=== PATIENT | female | born 1940 | race Caucasian/White ===

== ENCOUNTER → 2017-02-18 | Outpatient (CLI) | payer OTHER ==
[~2017-02-18] VITALS: Ht 162.6 cm; Wt 69.9 kg
[~2017-02-18] MED LIST: AFEDITAB CR30 MG PO; AMBEREN; ANTIVERT25 MG PO; APAP500 PO; AZITHROMYCIN250 MG; B COMPLETE1 EAC1 PO; CALCIUM 600 +1 EAC1 PO; CELEXA 20 MG TA20 M1 PO; CELEXA 20 MG TA20 MG PO; CELEXA40 MG PO; CYMBALTA30 MG PO; DIAZEPAM2 MG PO; HAIR, SKIN & N1 EAC1 PO; HYDROXYZINE HCL25 M1 PO; KLOR-CON 10 ER10 MEQ PO; LINZESS145 MCG PO; MOBIC7.5 MG PO; OCUVITE TABLET1 EAC1 PO; OMEGA 3-6-9 11200 M1 PO; OMEGA 3-6-9 11200 MG PO; OMEGA-3 FISH O1 EAC3 PO; ONDANSETRON HCL4 M2 PO; PHILLIPS' COLO1 EACH PO; PREDNISONE 20 M20 M1 PO; PREMARIN0.625 MG PO; PREVACID 30MG C30 M1 PO; PREVACID PO; PREVACID30 MG PO; PROCARDIA XL30 MG PO; PROZAC40 MG PO; REFRESH TEARS15 ML OPHTHALMIC; SIMVASTATIN20 MG PO; SIMVASTATIN40 MG PO; SINGULAIR 10 MG10 M1 PO; SUPER B COMPLE150 MG PO; SYNTHROID25 MCG PO; SYNTHROID50 MCG PO; TOPAMAX100 MG PO; VENTOLIN HFA 1818 GM INH; VICODIN 5-5001 EACH PO; VITAMIN B-12100 MC1 PO; VITAMIN B-6200 M1 PO; ZOFRAN ODT4 MG PO
--- NOTE | ~2017-02-18 | O ---
[facility] [place] [address] OPERATIVE REPORT Name: CORNELIOLUISITOMARYNESSA L Room #: REG [facility]#: [id number] Admission: 02/18/17 Attend Phys: Shailesh Marquez MD, F Discharge: Date of : 40 Report #: [id number] THIS REPORT FOR: //name// CC: Woo Marquez DATE OF SERVICE: 02/18/2017 PREPROCEDURE DIAGNOSES: 1. Gastroesophageal reflux. 2. Hypertension. 3. Joint pain. 4. History of hepatitis. POSTOPERATIVE DIAGNOSES: 1. Gastroesophageal reflux with a moderate hiatal hernia. 2. Hypertension. 3. Joint pain. 4. History of hepatitis. PROCEDURE: Thorough esophagogastroduodenoscopy. ANESTHESIA: Monitored anesthetic care (propofol 180 mg). SPECIMENS: None. COMPLICATIONS: None appreciated. INDICATIONS FOR PROCEDURE: This is a 76-year-old female patient who has had a greater than 10-year history of gastroesophageal reflux, taking daily Prevacid (twice daily as necessary) and has been avoiding refluxogenic foods as well as sleeping upright at night. Despite these measures, the patient continues to complain of gastroesophageal reflux. She has undergone previous endoscopy and was told that she has a hiatal hernia. She presents now for repeat EGD for evaluation. FINDINGS: The patient's esophagus was normal down to the GE junction and Z-line measured at 38 cm from the teeth. The diaphragmatic infolding was measured at 41 cm from the teeth indicative of a 3 cm hiatal hernia. No ulcers were seen in this area. No polyps, diverticula, masses, or ulcers were seen in the stomach. Likewise, the duodenum was normal down to the third portion. On retroflexion of the gastroscope, the hiatal hernia was easily visualized and appeared to be moderate in size. No other significant pathology was identified. DESCRIPTION OF PROCEDURE IN DETAIL: After the risks and benefits, and expectations of the procedure were explained to the patient, informed consent [address] [address] OPERATIVE REPORT Name: CORNELIOLUISITOMARYNESSA L Room #: REG [facility]#: [id number] Admission: 02/18/17 Attend Phys: Shailesh Marquez MD, F Discharge: Date of : 40 Report #: [id number] was obtained. The patient was identified in the preoperative holding area. After the patient was identified in the preprocedure holding area, she was taken to the procedure room and she was placed in the supine position. A bite block was placed. A time-out was then performed to identify the correct patient and procedure. The patient was then given IV sedation. When adequately sedated, the Fujinon gastroscope was inserted into the patient's oropharynx and passed down the esophagus into the stomach and beyond the pylorus to the third portion of the duodenum. The scope was then slowly withdrawn. Findings are as noted above. With the scope withdrawn into the antrum of the stomach, the scope was retroflexed and a retrograde view of the cardia was seen including the hiatal hernia. The scope was then straightened and slowly withdrawn. The stomach was decompressed. Confirmatory measurements were again taken. The scope was then slowly withdrawn through the normal appearing esophagus. The patient tolerated the procedure well. She was awakened and returned to the recovery room in stable condition with no apparent procedural complications. My recommendation is that the patient continue her twice daily proton pump inhibitor. Her reflux workup will continue with a barium swallow and esophageal manometry. She will follow up with me after having undergone these studies. <ELECTRONICALLY SIGNED> By: Shailesh Marquez MD, FACS 02/20/17 2224 1740 1829 Shailesh Marquez MD, FACS /nt
== END ==
LOC: GI 11:51
DX: K21.9 Gastro-esophageal reflux disease without esophagitis (principal); K44.9 Diaphragmatic hernia without obstruction or gangrene; I10 Essential (primary) hypertension; F41.8 Other specified anxiety disorders; E78.00 Pure hypercholesterolemia, unspecified; Z98.51 Tubal ligation status; E03.8 Other specified hypothyroidism; Z90.710 Acquired absence of both cervix and uterus; B15.9 Hepatitis A without hepatic coma; Z88.8 Allergy status to other drugs, medicaments and biological substances
CPT/HCPCS: 62110; 62900

== ENCOUNTER → 2017-03-04 | Outpatient (CLI) | payer OTHER | LOC: RAD 02-27 09:06 | DX: K44.9 Diaphragmatic hernia without obstruction or gangrene (principal); R13.10 Dysphagia, unspecified ==

== ENCOUNTER → 2017-09-16 | Outpatient (CLI) | payer OTHER ==
[~2017-09-16] MED LIST changes: +ASPIR 8181 MG PO; +NEURONTIN 300300 M1 PO; +PROBIOTIC1 EAC4 PO; +RESTORIL15 M1 PO; +VICODIN 5-3001 EACH PO; +XYZAL5 MG PO
== END ==
LOC: CAT 09:27
DX: M47.26 Other spondylosis with radiculopathy, lumbar region (principal)

== ENCOUNTER → 2017-10-22 | Outpatient (CLI) | payer OTHER ==
[~2017-10-22] MED LIST changes: -ASPIR 8181 MG PO; -VICODIN 5-3001 EACH PO
== END | disposition home or self-care (01) ==
LOC: RAD 06:15
DX: M51.36 Other intervertebral disc degeneration, lumbar region (principal); Z79.899 Other long term (current) drug therapy; Z88.8 Allergy status to other drugs, medicaments and biological substances

== ENCOUNTER → 2018-04-07 | Outpatient (CLI) | payer OTHER ==
[~2018-04-07] MED LIST changes: +ASPIR 8181 MG PO
== END ==
LOC: CAT 09:03
DX: S22.019A Unspecified fracture of first thoracic vertebra, initial encounter for closed fracture (principal); I10 Essential (primary) hypertension; E78.00 Pure hypercholesterolemia, unspecified; E03.9 Hypothyroidism, unspecified; X58.XXXA Exposure to other specified factors, initial encounter; Y93.89 Activity, other specified; Y92.89 Other specified places as the place of occurrence of the external cause; Y99.8 Other external cause status; Z90.710 Acquired absence of both cervix and uterus; Z79.899 Other long term (current) drug therapy

== ENCOUNTER → 2018-04-24 | Outpatient (CLI) | payer OTHER ==
[~2018-04-24] VITALS: Ht 162.6 cm; Wt 66.7 kg
[~2018-04-24] MED LIST changes: +VICODIN 5-3001 EACH PO
[2018-04-24 08:35] VITALS: BP 136/78
[2018-04-24 08:58] LABS: HEMATOCRIT 38.5 % (37.0-47.0); HEMOGLOBIN 13.3 gm/dL (12.0-15.0); MCH 30.4 pg (26.0-34.0); MCHC 34.4 g/dL (28.0-37.0); MCV 88.2 fL (80.0-100.0); RBC 4.37 mil/uL (4.20-5.00); RDW 13.8 % (10.5-14.5); WBC 7.5 thou/uL (4.0-11.0)
[2018-04-24 09:07] LABS: CALCIUM 9.3 mg/dL (8.5-10.1); POTASSIUM 3.8 mmol/L (3.5-5.1)
[2018-04-24 09:11] LABS: APTT 27.7 Seconds (24.5-32.8)
== END | disposition home or self-care (01) ==
LOC: MRI 08:02
PROVIDERS: Radiology Diagnostic Radiology
DX: M80.08XA Age-related osteoporosis with current pathological fracture, vertebra(e), initial encounter for fracture (principal); M54.9 Dorsalgia, unspecified; I10 Essential (primary) hypertension; E03.9 Hypothyroidism, unspecified; K21.9 Gastro-esophageal reflux disease without esophagitis; E78.00 Pure hypercholesterolemia, unspecified; F32.9 Major depressive disorder, single episode, unspecified; F41.9 Anxiety disorder, unspecified; Z98.41 Cataract extraction status, right eye; Z98.42 Cataract extraction status, left eye; Z90.49 Acquired absence of other specified parts of digestive tract; Z98.51 Tubal ligation status; Z90.710 Acquired absence of both cervix and uterus; Z87.19 Personal history of other diseases of the digestive system; Z82.49 Family history of ischemic heart disease and other diseases of the circulatory system; Z86.73 Personal history of transient ischemic attack (TIA), and cerebral infarction without residual deficits; Z98.890 Other specified postprocedural states; Z79.899 Other long term (current) drug therapy; Z88.6 Allergy status to analgesic agent; Z79.82 Long term (current) use of aspirin

== ENCOUNTER 2018-06-27 13:01 | Emergency (ER) | payer OTHER ==
[~2018-06-27] VITALS: Ht 160 cm; Wt 68.0 kg
--- NOTE | ~2018-06-27 | EKG ---
[address] [address] ELECTROCARDIOGRAM REPORT Name: NESSA ZAYAS Room #: DEP [facility]#: [id number] Admission: 06/27/18 Attend Phys: Discharge: 06/27/18 Date of : 40 Report #: [id number] THIS REPORT FOR: //name// [facility] ED Test Date: 2018-06-27 Test Time: 13:32:06 Pat Name: NESSA ZAYAS Department: Room: Gender: F Track Layer: YAS : 1940 Requested By: Desi Darling Order Number: [id number] MD: Raul Hernandez Measurements Intervals [place] Rate: 85 P: 56 MD: 169 QRS: 67 QRSD: 96 T: 50 QT: 389 QTc: 463 Interpretive Statements Sinus rhythm PAC Baseline wander in lead(s) V6 Compared to ECG 01/28/2018 12:00:01 No significant changes Electronically Signed On 06-29-2018 11:05:54 

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
[2018-06-27 13:49] LABS: ABSOLUTE NEUTROPHILS 5.3 thou/uL (1.4-8.2); BASOPHILS 0.9 % (0.0-2.0); EOSINOPHILS 3.7 % (0.0-3.0); HEMATOCRIT 41.8 % (37.0-47.0); HEMOGLOBIN 14.3 gm/dL (12.0-15.0); LYMPHOCYTES 23.1 % (24.0-44.0); MCH 30.5 pg (26.0-34.0); MCHC 34.2 g/dL (28.0-37.0); MCV 89.3 fL (80.0-100.0); MONOCYTES 8.3 % (1.0-8.0); PLATELET COUNT 339 thou/uL (150-400); RBC 4.68 mil/uL (4.20-5.00); RDW 13.6 % (10.5-14.5); WBC 8.3 thou/uL (4.0-11.0)
[2018-06-27 13:58] LABS: POC CREATININE 0.9 mg/dL (0.6-1.3); POC HEMOGLOBIN 14.6 g/dL (12.0-15.0); POC POTASSIUM 3.3 mmol/L (3.5-5.1)
[2018-06-27 14:04] LABS: ANION GAP 9 mmol/L (7-16); BUN 15 mg/dL (7-18); CALCIUM 9.2 mg/dL (8.5-10.1); CHLORIDE 102 mmol/L (98-107); CO2 28 mmol/L (21-32); CREATININE 0.9 mg/dL (0.6-1.0); GLUCOSE 98 mg/dL (74-106); POTASSIUM 3.9 mmol/L (3.5-5.1); SODIUM 139 mmol/L (136-145)
[2018-06-27 14:07] LABS: APTT 27.5 Seconds (24.5-32.8); PROTIME 9.8 Seconds (9.3-11.4)
[2018-06-27 14:12] LABS: TROPONIN-I <0.06 ng/mL (<0.06)
[2018-06-27 16:31] LABS: URINE BILIRUBIN NEGATIVE (Negative); URINE BLOOD NEGATIVE (Negative); URINE CLARITY CLEAR; URINE COLOR YELLOW; URINE GLUCOSE-RANDOM* NEGATIVE (Negative); URINE KETONES NEGATIVE (Negative); URINE LEUKOCYTES NEGATIVE (Negative); URINE NITRITE NEGATIVE (Negative); URINE PROTEIN (DIPSTICK) NEGATIVE (Negative); URINE UROBILINOGEN 0.2 E.U./dl (0.2-1.0)
[2018-06-27 17:35] VITALS: BP 142/84
== END 2018-06-27 17:36 | disposition home or self-care (01) ==
LOC: ER 13:01
PROVIDERS: Student in an Organized Health Care Education/Training Program
DX: H02.401 Unspecified ptosis of right eyelid (principal); R53.1 Weakness; F32.9 Major depressive disorder, single episode, unspecified; F41.9 Anxiety disorder, unspecified; E78.00 Pure hypercholesterolemia, unspecified; H81.09 Meniere's disease, unspecified ear; K58.9 Irritable bowel syndrome, unspecified; I10 Essential (primary) hypertension; E03.9 Hypothyroidism, unspecified; Z90.710 Acquired absence of both cervix and uterus; K21.9 Gastro-esophageal reflux disease without esophagitis; Z88.8 Allergy status to other drugs, medicaments and biological substances; Z90.49 Acquired absence of other specified parts of digestive tract; Z88.5 Allergy status to narcotic agent

== ENCOUNTER → 2018-08-18 | Outpatient (CLI) | payer OTHER | LOC: MRI 09:54 | DX: R42 Dizziness and giddiness (principal); R26.9 Unspecified abnormalities of gait and mobility ==

== ENCOUNTER → 2018-10-28 | Outpatient (CLI) | payer OTHER ==
[~2018-10-28] VITALS: Ht 162.6 cm; Wt 66.7 kg
[~2018-10-28] MED LIST changes: +HAIR SKIN NAIL1 EACH PO; +PRESERVISION T1 EACH PO
[2018-10-28 13:06] VITALS: BP 131/91
--- NOTE | 2018-10-28 13:37 | NUR ---
Pain Clinic Assessment: 1. History of Osteoarthritis: History of Rheumatoid Arthritis: 2. Height: 5 ft. 4 in. 162.6 cm. Weight: 147.0 lb. oz. 66.679 kg. Patient's BMI: 25.2 3. Vital Signs: BP: 131/91 Pulse: 81 Resp: 16 Temp: 02 Sat: 100 ECG Mon: 4. Pain Intensity: 5, 9 WITH MOVEMENT 5. Fall Risk: Dizziness: Y Needs help standing or walking: N Fallen in the last 3 months: Y Fall risk comments: 6. Patient on Blood Thinner: None 7. History of Hypertension: Y 8. Opioid Therapy greater than 6 weeks: Y Opiate Contract Signed: 9. Risk Assessment Tool Provided: 10. Functional Assessment Tool: 11. Recreational Drug Use: Never Drug Type: Tobacco Use: Never Smoker Tobacco Type: Amount or Packs/day: How Many Years: Alcohol Use: No Frequency: Quant:
== END ==
LOC: PAIN 07:12
DX: M54.5 Low back pain (principal); M19.90 Unspecified osteoarthritis, unspecified site; Z98.890 Other specified postprocedural states

== ENCOUNTER → 2019-01-01 | Outpatient (CLI) | payer OTHER ==
[~2019-01-01] VITALS: Ht 162.6 cm; Wt 68.9 kg
[~2019-01-01] MED LIST changes: +CYMBALTA60 MG PO; +HYDROCODON-ACE1 EAC7 PO; +NEURONTIN600 MG PO
[2019-01-01 08:27] VITALS: BP 160/93
--- NOTE | 2019-01-01 08:43 | NUR ---
Pain Clinic Assessment: 1. History of Osteoarthritis: Not Applicable History of Rheumatoid Arthritis: Not Applicable 2. Height: 5 ft. 4 in. 162.6 cm. Weight: 152.0 lb. oz. 68.947 kg. Patient's BMI: 26.1 3. Vital Signs: BP: 160/93 Pulse: 77 Resp: 16 Temp: 02 Sat: 97 ECG Mon: 4. Pain Intensity: 8 5. Fall Risk: Dizziness: N Needs help standing or walking: N Fallen in the last 3 months: N Fall risk comments: 6. Patient on Blood Thinner: None 7. History of Hypertension: Y 8. Opioid Therapy greater than 6 weeks: Y Opiate Contract Signed: 9. Risk Assessment Tool Provided: LOW / 10. Functional Assessment Tool: 11. Recreational Drug Use: Never Drug Type: Tobacco Use: Never Smoker Tobacco Type: Amount or Packs/day: How Many Years: Alcohol Use: No Frequency: Quant:
== END | disposition home or self-care (01) ==
LOC: PAIN 06:46
DX: M54.16 Radiculopathy, lumbar region (principal); G89.29 Other chronic pain; Z88.6 Allergy status to analgesic agent; Z88.8 Allergy status to other drugs, medicaments and biological substances; Z79.82 Long term (current) use of aspirin; Z79.899 Other long term (current) drug therapy; Z79.891 Long term (current) use of opiate analgesic

== ENCOUNTER → 2019-04-28 | Outpatient (CLI) | payer OTHER ==
[~2019-04-28] VITALS: Ht 162.6 cm; Wt 69.8 kg
[2019-04-28 13:44] VITALS: BP 148/78
--- NOTE | 2019-04-28 13:58 | NUR ---
Pain Clinic Assessment: 1. History of Osteoarthritis: Not Applicable History of Rheumatoid Arthritis: Not Applicable 2. Height: 5 ft. 4 in. 162.6 cm. Weight: 153.8 lb. oz. 69.763 kg. Patient's BMI: 26.4 3. Vital Signs: BP: 148/78 Pulse: 86 Resp: 16 Temp: 02 Sat: 96 ECG Mon: 4. Pain Intensity: 9 5. Fall Risk: Dizziness: N Needs help standing or walking: N Fallen in the last 3 months: N Fall risk comments: 6. Patient on Blood Thinner: None 7. History of Hypertension: Y 8. Opioid Therapy greater than 6 weeks: Y Opiate Contract Signed: 9. Risk Assessment Tool Provided: LOW / 10. Functional Assessment Tool: 11. Recreational Drug Use: Never Drug Type: Tobacco Use: Never Smoker Tobacco Type: Amount or Packs/day: How Many Years: Alcohol Use: No Frequency: Quant:
--- NOTE | 2019-05-14 08:25 | HPC ---
[facility] [place] [address] PAIN MANAGEMENT CONSULTATION Name: NESSA ZAYAS KHLOEBlessing Room #: REG [facility] Maira.#: [id number] Admission: 04/28/19 Attend Phys: German Lewis MD Discharge: Date of : 40 Report #: [id number] THIS REPORT FOR: //name// CC: Woo Lewis DATE OF SERVICE: 04/28/2019 CHIEF COMPLAINT: Low back pain. HISTORY: The patient is a 78-year-old female who has been seen in the pain clinic because of low back pain. The patient has pain that is radiating down the lower portion of her back. It involves her legs. Pain is exacerbated when the patient walks for a prolonged period of time. Pain improves when she rests and sits in a recliner. She has not had surgery. She has not had physical therapy in the last year. She has had chiropractic treatment, but continues to have pain and discomfort. Epidural steroid injections in the past were helpful and she has returned today with the hopes of undergoing another epidural injection to help with her pain control. Last injection was in 10/2018. Her pain has reoccurred. ALLERGIES: CODEINE, OXYCODONE. CURRENT MEDICATIONS: Ascorbic acid, vitamin E, biotin, PreserVision tablets, Singulair 10 mg, Vicodin 5 mg 1 p.o. q.4 hours p.r.n., aspirin 81 mg, meloxicam 7.5 mg b.i.d., Restoril 15 mg, gabapentin 600 mg at bedtime, Xyzal 5 mg, probiotic/lactobacillus, Cymbalta 30 mg, Linzess 145 mcg every other day, vitamin B complex, calcium b.i.d., simvastatin 20 mg, Topamax for anger management, Synthroid 50 mcg, Procardia-XL 30 mg, Premarin 0.625. PAIN CLINIC ASSESSMENT AND PQRS: 1. The patient is not being treated for osteoarthritis. She is not being treated for rheumatoid arthritis. 2. Height 5 feet 4 inches, weight 153 pounds, BMI is 26.4. 3. Vital signs: Blood pressure 148/78, pulse 86, respiratory rate 16, room air saturation 96%. 4. Pain intensity, 03/16. 5. Fall history, the patient has not fallen in the last 3 months. 6. Blood thinner, the patient is not on a blood thinning medication. 7. Hypertension, the patient is being treated for hypertension. 8. Opioids greater than 6 weeks. The patient receives medications from one source. 9. Risk assessment tool, low for opioid use. 10. Functional assessment tool, /. 11. Recreational drug use, the patient denies. 12. Tobacco, the patient has never smoked. [facility] [address] [place] [address] PAIN MANAGEMENT CONSULTATION Name: NESSA ZAYAS TANIYA [facility]: [facility] [id number] Admission: 04/28/19 Attend Phys: German Lewis MD Discharge: Date of : 40 Report #: [id number] 13. Alcohol, the patient denies use of alcoholic beverages. PHYSICAL EXAMINATION: GENERAL: The patient is a well-developed, well-nourished, white female. She is alert and oriented x 3. Her affect is appropriate. Speech is fluent. HEENT: Normocephalic, atraumatic. Extraocular eye muscles intact. Sclerae nonicteric. Mucous membranes are moist. NECK: Without adenopathy or JVD. EXTREMITIES: Upper extremity muscle strength judged to be 5/5 for the major muscle groups in the upper extremity. HEART: Regular rate. ABDOMEN: Nontender. MUSCULOSKELETAL: The patient has pain and discomfort in the low back area. The patient is without significant scoliosis, kyphosis, or lordosis. Complains of pain and discomfort that radiates down into her leg involving the L5/S1 dermatomal distribution. IMPRESSION: 1. Chronic low back pain. 2. Hypertension. 3. Hepatitis A history. 4. Thyroid disease. 5. Stomach problems. 6. Emotional problems. 7. Joint disease/arthritis. 8. Meniere's disease. RECOMMENDATIONS: We discussed treatment options with the patient. Risks and benefits of an epidural steroid injection were discussed. They include but are not limited to infection, worsening pain, no improvement in pain, nerve damage, or spinal headache. The patient elects to proceed. PROCEDURE NOTE: The patient was taken to the procedure area. She was then assisted in getting on the examination table. Her back was sterilely prepped with a Betadine solution. A 0.25% bupivacaine was infiltrated in the L5-S1 midline area to anesthetize it. After appropriate anesthetizing of the area, a 17-gauge Tuohy with loss of resistance technique was used to gain access to the epidural space. There was no CSF, heme or paresthesia. Total of 80 mg Depo-Medrol, 40 mg triamcinolone and 2 mL of 0.25% bupivacaine was injected. A total of 15 seconds fluoroscopy time was used. The patient tolerated the procedure well. There were no complications. She remained in the pain clinic for an appropriate amount of time. She will follow up in the future as needed. [facility] [address] [place] [address] PAIN MANAGEMENT CONSULTATION Name: NESSA ZAYAS Room #: REG [facility].#: [id number] Admission: 04/28/19 Attend Phys: German Lewis MD Discharge: Date of : 40 Report #: [id number] We would like to thank you for letting us participate in her care. We hope she continues to improve. <ELECTRONICALLY SIGNED> By: German Lewis MD 05/14/19 0825 1411 0159 German Lewis MD /[facility]
== END | disposition home or self-care (01) ==
LOC: PAIN 07:06
DX: M54.16 Radiculopathy, lumbar region (principal); G89.29 Other chronic pain; Z98.890 Other specified postprocedural states; Z88.8 Allergy status to other drugs, medicaments and biological substances; Z79.899 Other long term (current) drug therapy

== ENCOUNTER 2020-01-16 17:03 | Emergency (ER) | payer OTHER ==
[~2020-01-16] VITALS: Ht 160 cm; Wt 68.0 kg
[2020-01-16 17:38] LABS: ABSOLUTE NEUTROPHILS 4.5 thou/uL (1.4-8.2); BASOPHILS 0.8 % (0.0-2.0); HEMATOCRIT 40.6 % (37.0-47.0); HEMOGLOBIN 14.1 gm/dL (12.0-15.0); LYMPHOCYTES 23.1 % (24.0-44.0); MCH 30.4 pg (26.0-34.0); MCHC 34.7 g/dL (28.0-37.0); MCV 87.5 fL (80.0-100.0); PLATELET COUNT 275 thou/uL (150-400); POLYS 63.1 % (36.0-66.0); RBC 4.63 mil/uL (4.20-5.00); RDW 13.5 % (10.5-14.5); WBC 7.1 thou/uL (4.0-11.0)
[2020-01-16 17:45] LABS: ANION GAP 8 mmol/L (7-16); BUN 12 mg/dL (7-18); CHLORIDE 100 mmol/L (98-107); CO2 28 mmol/L (21-32); CREATININE 1.2 mg/dL (0.6-1.0); GLUCOSE 102 mg/dL (74-106); POTASSIUM 3.5 mmol/L (3.5-5.1); SODIUM 136 mmol/L (136-145)
[2020-01-16 17:54] LABS: TROPONIN-I <0.06 ng/mL (<0.06)
[2020-01-16] MEDS ORDERED: METHOCARBAMOL500 M2 PO (19:48)
[2020-01-16] MEDS ORDERED: TRAMADOL 50 MG50 MG PO (19:48)
[2020-01-16 20:15] VITALS: BP 140/84
--- NOTE | 2020-01-17 09:11 | EKG ---
[facility] [place] [address] ELECTROCARDIOGRAM REPORT Name: NESSA ZAYAS Room #: DEP [facility]#: [id number] Admission: 01/16/20 Attend Phys: Discharge: 01/16/20 Date of : 40 Report #: [id number] THIS REPORT FOR: cc: Woo Cary David J. DO Lundgren, Craig H. 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 : 1940 Requested By: Tito Metzger Order Number: [id number] MD: Hema Park Measurements Intervals [place] Rate: 91 P: 40 AL: 213 QRS: 64 QRSD: 105 T: 59 QT: 413 QTc: 509 Interpretive Statements Sinus rhythm Borderline prolonged AL interval Borderline T abnormalities, anterior leads Prolonged QT interval Compared to ECG 06/27/2018 13:32:06 T-wave abnormality now present Prolonged QT interval now present Atrial premature complex(es) no longer present Electronically Signed On 01-17-2020 9:10:48 CDT by Hema Park [email or web address] <ELECTRONICALLY SIGNED> By: Hema Park MD, [facility] 01/17/20 0910 170 00 Hema Park MD, [facility] /EPI
== END 2020-01-16 20:20 | disposition home or self-care (01) ==
LOC: ER 17:03
PROVIDERS: Emergency Medicine
DX: R07.89 Other chest pain (principal); I10 Essential (primary) hypertension; Z90.710 Acquired absence of both cervix and uterus; Z90.49 Acquired absence of other specified parts of digestive tract; Z79.899 Other long term (current) drug therapy; Z88.5 Allergy status to narcotic agent

== ENCOUNTER → 2020-04-28 | Outpatient (CLI) | payer OTHER ==
[~2020-04-28] MED LIST changes: +METHOCARBAMOL500 M2 PO; +TRAMADOL 50 MG50 MG PO
== END ==
LOC: SJCVCIMAG 08:06
PROVIDERS: ATTEND Internal Medicine Cardiovascular Disease
DX: I07.1 Rheumatic tricuspid insufficiency (principal); I10 Essential (primary) hypertension; E78.00 Pure hypercholesterolemia, unspecified; F41.9 Anxiety disorder, unspecified; F32.9 Major depressive disorder, single episode, unspecified; Z79.899 Other long term (current) drug therapy

== ENCOUNTER → 2020-05-19 | Outpatient (CLI) | payer OTHER ==
[~2020-05-19] VITALS: Ht 162.6 cm; Wt 64.8 kg
[~2020-05-19] MED LIST changes: +NORVASC10 MG PO
--- NOTE | ~2020-05-19 | HPC ---
[facility] [place] [address] PAIN MANAGEMENT CONSULTATION Name: NESSA ZAYAS Room [facility]: [facility] [id number] Admission: 05/19/20 Attend Phys: German Lewis MD Discharge: Date of : 40 Report #: [id number] THIS REPORT FOR: cc: Woo Cary David J. DO Brown, N. Wayne MD ~ CC: Woo Lewis DATE OF SERVICE: 05/19/2020 CHIEF COMPLAINT: Low back pain. HISTORY: The patient is a 79-year-old female who has been seen in the pain clinic in the past. She has pain that is radiating down into her back involving her legs. She rates her pain as a 3 in the morning and rise to the level of 8 as the day progresses. Prolonged standing can be problematic. She notes that her pain is increased with activities. She has not had physical therapist year. Epidural steroid injections in the past have been helpful. She returns today with hopes of undergoing an epidural steroid injection. Prior injections were beneficial. ALLERGIES: CODEINE AND OTHER ALLERGIC MEDICINE WAS OXYCODONE. CURRENT MEDICATIONS: Ascorbic acid, vitamin E, biotin, PreserVision tablets, Singulair 10 mg, Vicodin 5 mg one p.o. every 4 hours p.r.n., aspirin 81 mg, meloxicam 7.5 mg b.i.d., Restoril 15 mg, gabapentin 600 mg at bedtime, Xyzal 5 mg, probiotic lactobacillus, Cymbalta 30 mg, Linzess 145 mcg, vitamin B complex, calcium b.i.d., simvastatin 20 mg, Topamax for anger management, Synthroid 50 mcg, Procardia-XL 30 mg, Premarin 0.625. PAIN CLINIC ASSESSMENT AND PQRS: 1. The patient is not being treated for osteoarthritis. She is not being treated for rheumatoid arthritis. 2. Height 5 feet 4 inches, weight 142 pounds, BMI is 24. 3. Vital Signs: Blood pressure 159/97, pulse 84, respiratory rate 18, room air saturation 98%. 4. Pain intensity can rise from a 3-8 when the patient is involved in prolonged standing. 5. Risk assessment tool. The patient has not fallen in the last 3 months. 6. Blood thinner. The patient is not on a blood thinning medication. 7. Hypertension. The patient is being treated for hypertension. 8. Opioids greater than 6 weeks. The patient receives medication from her primary physician. 9. Risk assessment tool, low for opioid use. 10. Functional assessment tool . [address] [address] PAIN MANAGEMENT CONSULTATION Name: CORNELIOLUISITOMARYNESSA Room #: REG [facility].#: [id number] Admission: 05/19/20 Attend Phys: German Lewis MD Discharge: Date of : 40 Report #: [id number] 11. Recreational drug use: The patient denies. 12. Tobacco: The patient denies. PHYSICAL EXAMINATION: GENERAL: The patient is a well-developed, well-nourished white female. She is alert and oriented x 3. Her affect is appropriate. Speech is fluent. HEENT: Normocephalic, atraumatic. Extraocular eye muscles intact. Sclerae nonicteric. Mucous membranes are moist. NECK: Without adenopathy or JVD. EXTREMITIES: Upper extremity muscle strength judged to be 5/5 for the major muscle groups in the upper extremity. HEART: Regular rate. ABDOMEN: Nontender. MUSCULOSKELETAL: The patient has pain and discomfort in lower portion of her back. The patient is without significant scoliosis, kyphosis or lordosis. Complains of pain in the lower portion of the back that radiates down into the leg in the L5-S1 dermatomal distribution. IMPRESSION: 1. Chronic low back pain. 2. Hypertension. 3. History of hepatitis. 4. Thyroid disease. 5. Stomach problems. 6. Emotional problems. 7. Joint disease/arthritis. 8. Meniere's. RECOMMENDATIONS: We discussed treatment options with the patient. We explained that steroid medications can decrease the immune response. The patient has received allergy shots recently. She is to start antibiotic medications in the next day. We will have the patient return to the Pain Clinic in about 2 weeks after her allergic shots and antibiotics have completed. At that time, we will then consider an epidural steroid injection. Questions were sought and answered. We would like to thank you for letting us participate in her care. We hope she continues to improve. By: [id number] German Lewis MD /ROSLYN
[2020-05-19 12:26] VITALS: BP 159/97
--- NOTE | 2020-05-19 12:34 | NUR ---
Pain Clinic Assessment: 1. History of Osteoarthritis: NECK SPINE History of Rheumatoid Arthritis: Not Applicable 2. Height: 5 ft. 4 in. 162.6 cm. Weight: 142.8 lb. oz. 64.774 kg. Patient's BMI: 24.5 3. Vital Signs: BP: 159/97 Pulse: 84 Resp: 18 Temp: 02 Sat: 98 ECG Mon: 4. Pain Intensity: 8 5. Fall Risk: Dizziness: N Needs help standing or walking: N Fallen in the last 3 months: N Fall risk comments: 6. Patient on Blood Thinner: None 7. History of Hypertension: Y 8. Opioid Therapy greater than 6 weeks: Y Opiate Contract Signed: 9. Risk Assessment Tool Provided: LOW / 10. Functional Assessment Tool: 11. Recreational Drug Use: Never Drug Type: Tobacco Use: Never Smoker Tobacco Type: Amount or Packs/day: How Many Years: Alcohol Use: No Frequency: Quant:
== END ==
LOC: PAIN 06:55
PROVIDERS: ATTEND Anesthesiology Pain Medicine
DX: M54.5 Low back pain (principal); G89.29 Other chronic pain; I10 Essential (primary) hypertension; E07.9 Disorder of thyroid, unspecified; K92.9 Disease of digestive system, unspecified; F98.9 Unspecified behavioral and emotional disorders with onset usually occurring in childhood and adolescence; M19.90 Unspecified osteoarthritis, unspecified site; H81.09 Meniere's disease, unspecified ear; Z86.19 Personal history of other infectious and parasitic diseases; Z88.8 Allergy status to other drugs, medicaments and biological substances; Z79.899 Other long term (current) drug therapy

== ENCOUNTER → 2020-06-07 | Outpatient (CLI) | payer OTHER ==
[~2020-06-07] VITALS: Ht 162.6 cm; Wt 65.0 kg
[2020-06-07 10:13] VITALS: BP 133/96
--- NOTE | 2020-06-07 10:30 | NUR ---
Pain Clinic Assessment: 1. History of Osteoarthritis: NECK SPINE History of Rheumatoid Arthritis: Not Applicable 2. Height: 5 ft. 4 in. 162.6 cm. Weight: 143.4 lb. oz. 65.046 kg. Patient's BMI: 24.6 3. Vital Signs: BP: 133/96 Pulse: 92 Resp: 16 Temp: 02 Sat: 96 ECG Mon: 4. Pain Intensity: 5 5. Fall Risk: Dizziness: N Needs help standing or walking: N Fallen in the last 3 months: N Fall risk comments: 6. Patient on Blood Thinner: None 7. History of Hypertension: Y 8. Opioid Therapy greater than 6 weeks: Y Opiate Contract Signed: 9. Risk Assessment Tool Provided: LOW / 10. Functional Assessment Tool: 11. Recreational Drug Use: Never Drug Type: Tobacco Use: Never Smoker Tobacco Type: Amount or Packs/day: How Many Years: Alcohol Use: No Frequency: Quant:
== END | disposition home or self-care (01) ==
LOC: PAIN 06:42
PROVIDERS: ATTEND Anesthesiology Pain Medicine
DX: M54.16 Radiculopathy, lumbar region (principal); G89.29 Other chronic pain; I10 Essential (primary) hypertension; E07.9 Disorder of thyroid, unspecified; M19.90 Unspecified osteoarthritis, unspecified site; Z98.890 Other specified postprocedural states; Z79.899 Other long term (current) drug therapy; Z88.8 Allergy status to other drugs, medicaments and biological substances

== ENCOUNTER → 2020-09-14 | Outpatient (CLI) | payer OTHER | LOC: SJCVC 10:18 | PROVIDERS: ATTEND Internal Medicine Cardiovascular Disease | DX: R94.31 Abnormal electrocardiogram [ECG] [EKG] (principal); R06.00 Dyspnea, unspecified; R07.9 Chest pain, unspecified; I10 Essential (primary) hypertension; E78.00 Pure hypercholesterolemia, unspecified; K21.9 Gastro-esophageal reflux disease without esophagitis; E78.5 Hyperlipidemia, unspecified; E03.9 Hypothyroidism, unspecified; F32.9 Major depressive disorder, single episode, unspecified; F41.9 Anxiety disorder, unspecified; Z86.73 Personal history of transient ischemic attack (TIA), and cerebral infarction without residual deficits; Z88.5 Allergy status to narcotic agent; Z88.8 Allergy status to other drugs, medicaments and biological substances; Z79.82 Long term (current) use of aspirin; Z79.899 Other long term (current) drug therapy ==

== ENCOUNTER → 2021-03-13 | Outpatient (CLI) | payer OTHER | LOC: SJCVC 11:01 | PROVIDERS: ATTEND Internal Medicine Cardiovascular Disease | DX: R94.31 Abnormal electrocardiogram [ECG] [EKG] (principal); R06.00 Dyspnea, unspecified; I10 Essential (primary) hypertension; E78.00 Pure hypercholesterolemia, unspecified; F41.9 Anxiety disorder, unspecified; K21.9 Gastro-esophageal reflux disease without esophagitis; E03.9 Hypothyroidism, unspecified; Z88.5 Allergy status to narcotic agent; Z88.8 Allergy status to other drugs, medicaments and biological substances; Z79.82 Long term (current) use of aspirin; Z79.899 Other long term (current) drug therapy ==

== ENCOUNTER → 2021-04-27 | Outpatient (CLI) | payer OTHER | LOC: SJCVC 13:05 | PROVIDERS: ATTEND Internal Medicine Cardiovascular Disease | DX: R94.31 Abnormal electrocardiogram [ECG] [EKG] (principal); R00.1 Bradycardia, unspecified; R06.00 Dyspnea, unspecified; E78.00 Pure hypercholesterolemia, unspecified; F41.9 Anxiety disorder, unspecified; R07.9 Chest pain, unspecified; I10 Essential (primary) hypertension; E03.9 Hypothyroidism, unspecified; J30.2 Other seasonal allergic rhinitis; B15.9 Hepatitis A without hepatic coma; K21.9 Gastro-esophageal reflux disease without esophagitis; Z88.8 Allergy status to other drugs, medicaments and biological substances; Z79.899 Other long term (current) drug therapy; Z98.890 Other specified postprocedural states; Z86.73 Personal history of transient ischemic attack (TIA), and cerebral infarction without residual deficits ==

== ENCOUNTER → 2021-06-27 | Outpatient (CLI) | payer OTHER | LOC: SJCVC 12:51 | PROVIDERS: ATTEND Internal Medicine Cardiovascular Disease | DX: I49.3 Ventricular premature depolarization (principal); R07.9 Chest pain, unspecified; I10 Essential (primary) hypertension; E78.00 Pure hypercholesterolemia, unspecified; F41.9 Anxiety disorder, unspecified; K21.9 Gastro-esophageal reflux disease without esophagitis; F32.9 Major depressive disorder, single episode, unspecified; E78.5 Hyperlipidemia, unspecified; E03.9 Hypothyroidism, unspecified; Z88.5 Allergy status to narcotic agent; Z79.899 Other long term (current) drug therapy ==